=== PATIENT | male | born 1975 | race Caucasian/White ===

== ENCOUNTER 2017-03-25 05:33 | Emergency (ER) | payer OTHER ==
[~2017-03-25] VITALS: Ht 177.8 cm; Wt 95.7 kg
[~2017-03-25 05:33] MED LIST: percocet
--- OUTSIDE RECORDS SUMMARY | 2017-03-25 06:02 | XMS REPORT ---
Author Author GENERATED, SYSTEM Organization Unknown Address Unknown Phone Unavailable Care Team Providers Care Grit Blaster Name Role Phone UNASSIGNED DOCTOR , DOCTOR PP Reason For Visit Chief Complaint RT LITTLE FINGER INJURY Social History Functional Status Vital Signs Results DX Radiology from 09/17/2015 9:02 AMHAND RIGHT 3 VIEWS History: Dislocated right 5th finger Technique: 3view hand Priors: None. Findings: There is no fracture. There is no dislocation. There is persistent flexion deformity of the distal interphalangeal joint of the 5th digit suspicious for extensor mechanism injury. There is a healed fracture of the proximal shaft 5th metacarpal. The distal radius and ulna appear intact. The carpal bones and joint spaces appear well maintained. Impression: Persistent flexion deformity of the distal interphalangeal joint of the 5th digit suspicious for extensor mechanism injury. No definite fractures are identified. Electronically signed by: Caesar Link MD Dictated: 09/17/2015 09:21 Problems Encounter Diagnosis No relevant problems exist. Encounters Encounter Diagnosis No relevant problems exist. Plan of Care Procedures No relevant procedures performed. Immunizations No immunizations administered or ordered. Hospital Course Hospital Discharge Instructions Allergies, Adverse Reactions, Alerts * Latex Allergy has not been assessed. * IV Contrast Allergy has not been assessed. Medication Medication reconciliation has not been performed.
--- OUTSIDE RECORDS SUMMARY | 2017-03-25 06:02 | XMS REPORT | Continuity of Care Document ---
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 Visit Date/Time Discharge Status Pt. Type Provider Facility Loc./Unit Complaint [id number] 09/18/2015 08:00:00 ACT Outpatient [facility]
[2017-03-25] MEDS ORDERED: KETOROLAC 60 MG/2 ML VIAL IM ONE (06:15)
[2017-03-25] MEDS ORDERED: ORPHENADRINE 60 MG/2 ML (NORFLEX) AMP IM ONE (06:15)
--- NOTE | 2017-03-25 06:18 | ED Back Pain ---
General Chief Complaint: Back Problems Stated Complaint: BACK SPASMS Nursing Triage Note: pt verbalized turned to get backpack out of truck, back spasms started with pain radiating to left rib. 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 The patient has had similar pain in his back in the past. The patient had significant disc disease for which she underwent surgery with significant improvement. The patient's surgery was done at [facility]. The patient however continues to have intermittent low back muscle spasm and pain successfully treated in the past with ketorolac and muscle relaxants. The patient's chronic paresthesias to the left lower extremity were moderately improved with surgery. The patient has no associated foot drop or perineal anesthesia. He denies associated bowel or bladder dysfunction. This was not a work-related injury according to the patient. Allergies and Home Medications Allergies Coded Allergies: No Known Drug Allergies (Verified Allergy, Unknown, 06/07/07) Home Medications [percocet] , (Reported) Constitutional: No chills, No fever EENTM: no symptoms reported Respiratory: No cough Cardiovascular: No chest pain Gastrointestinal: No abdominal pain Genitourinary: No dysuria, No frequency Musculoskeletal: see HPI, back pain, muscle stiffness Skin: No rash Psychiatric/Neurological: No Symptoms Reported Past Ayzzaia-Natllb-Axqtwr Hx Patient Social History Recent Foreign Travel: No Contact w/Someone Who Travel: No Recent Infectious Disease Expo: No Recent Hopitalizations: No Seasonal Allergies Seasonal Allergies: No Respiratory Hx Respiratory Disorders: No Neurological Hx Neurological Disorders: No Reproductive System Hx Reproductive Disorders: No Genitourinary Hx Genitourinary Disorders: No Musculoskeletal Hx Musculoskeletal Disorders: Yes (BULGING DISC) Endocrine Hx Endocrine Disorders: No HEENT HX ENT Disorders: No Psychosocial Hx Psychiatric Problems: No Blood Transfusions Hx Blood Disorders: No Reviewed Nursing Assessment Reviewed/Agree w Nursing PMH: Yes Physical Exam Vital Signs Vital Sign - Last 12Hours 03/25/17 05:56 Temp 97.7 Pulse 83 Resp 18 B/P (MAP) 181/11 Pulse Ox 97 O2 Delivery Room Air Capillary Refill : Less Than 3 Seconds General Appearance: No Apparent Distress, WD/WN HEENT: Normal ENT Inspection Neck: Normal Inspection Cardiovascular: Regular Rate, Rhythm Respiratory: Normal Breath Sounds Gastrointestinal: Normal Bowel Sounds Back: Other (the back exam is unremarkable other than approximate 2 and she midline incision over the mid lumbar region from the patient's previous disc surgery.) Extremity: Normal Inspection Neurologic/Psychiatric: Alert, Oriented x3, No Motor/Sensory Deficits Skin: Normal Color, Warm/Dry Progress/Results/Core Measures Results/Orders My Orders Orders - GABINO FISHMAN MD Ketorolac Injection (Toradol Injection) (03/25/17 06:15) Orphenadrine Injection (Norflex Injectio (03/25/17 06:15) Medications Given in ED Current Medications Medications Dose Ordered Sig/Saige Route Start Time Stop Time Status Last Admin Dose Admin Ketorolac Tromethamine 60 mg ONCE ONCE IM 03/25/17 06:15 03/25/17 06:16 03/25/17 06:11 60 MG Orphenadrine Citrate 60 mg ONCE ONCE IM 03/25/17 06:15 03/25/17 06:16 03/25/17 06:11 60 MG Vital Signs/I&O Vital Sign - Last 12Hours 03/25/17 05:56 Temp 97.7 Pulse 83 Resp 18 B/P (MAP) 181/11 Pulse Ox 97 O2 Delivery Room Air Blood Pressure Mean: 67 Progress Note : Time: 06:20 Progress Note Patient received 60 mg of Toradol and Norflex IM. Prescriptions were written for Toradol and Norflex orally. Departure Impression Impression: Primary Impression: Back pain Qualified Codes: M54.5 - Low back pain Disposition: 01 HOME, SELF-CARE Condition: Improved Departure-Patient Inst. Decision time for Depature: 06:22 Referrals: PADMINI VILLANUEVA MD (PCP/Family) Primary Care Physician Patient Instructions: Low Back Pain (DC), MANAGING YOUR CHRONIC PAIN Add. Discharge Instructions: Toradol and Norflex orally as needed. Close follow-up with your doctor. Return if any problems or questions. All discharge instructions reviewed with patient and/or family. Voiced understanding. GABINO FISHMAN MD Mar 25, 2017 06:18
[2017-03-25 06:27] VITALS: BP 181/11
== END 2017-03-25 06:27 | disposition home or self-care (01) ==
LOC: EDUNIT# 05:33 → ER 05:37
DX: M54.5 Low back pain (principal)
CPT/HCPCS: 99284

== ENCOUNTER → 2018-11-01 | Outpatient (REF) ==
--- NOTE | 2018-11-01 15:37 | Diagnostic Imaging Report ---
PROCEDURE: CT head and CT cervical spine without contrast. TECHNIQUE: Multiple contiguous axial images were obtained through the brain and cervical spine without the use of intravenous contrast. Sagittal and coronal reformations through the cervical spine were then performed. INDICATION: Fall. Head injury. COMPARISON: None. FINDINGS: CT HEAD: No intracranial hemorrhage, mass effect, hydrocephalus or extra-axial fluid collections. No CT evidence for territorial infarction. Osseous structures are intact. Mild mucosal thickening in the floor of the right maxillary sinus. The mastoids are clear. CT CERVICAL SPINE: Normal alignment. Vertebral body heights are preserved. No fractures. Moderate diffuse degenerative endplate changes. No high-grade spinal canal narrowing is evident on this non-intrathecal contrast exam. The visualized paravertebral soft tissues are unremarkable. IMPRESSION: No acute intracranial or cervical spine CT findings. Dictated by: Dictated on workstation # [id number]
== END | disposition home or self-care (01) ==
LOC: OCC 15:03
PROVIDERS: ATTEND Nurse Practitioner Family
CPT/HCPCS: 70450; 72125

== ENCOUNTER 2019-05-11 02:09 | Emergency (ER) | payer OTHER ==
[~2019-05-11] VITALS: Ht 180.3 cm; Wt 97.5 kg
[2019-05-11] MEDS ORDERED: LIDOCAINE 1% INJ 20 ML 20 ML VIAL ONE (02:18)
[2019-05-11] MEDS ORDERED: LIDOCAINE 1% INJ 20 ML 20 ML VIAL INJ ONE (02:30)
--- NOTE | 2019-05-11 02:35 | NUR ---
SUTURES TO RIGHT KNEE PER DR. ANAYA USING 4-0 PROLENE.
[2019-05-11] MEDS ORDERED: TRIM/SULFAMETH 160/800 (SEPTRA DS) TAB PO ONE (02:45)
--- NOTE | 2019-05-11 03:01 | ED General ---
General Chief Complaint: Laceration Stated Complaint: RT KNEE LAC Nursing Triage Note: AMBULATORY TO ED ROOM 3 WITH LAC TO RIGHT KNEE. PT IS NEW [employer] WHO LANDED KNEE ON [address] DURING "ALTERCATION" WITH SUBJECT AT SCENE HE WAS WORKING. STATES TETANUS WITHIN LAST 4 YEARS. 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 He was apprehended a suspect when he landed on his knees on some broken glass and debris. The glass or debris cut through his pants and lacerated his right knee. He denies any significant pain or difficulty walking. The laceration is fairly deep. There is some mild bleeding. He reports having had a tetanus immunization within the past 4 years. Allergies and Home Medications Allergies Coded Allergies: No Known Drug Allergies (Verified , 06/07/07) Home Medications Sulfamethoxazole/Trimethoprim 1 Each Tablet, 1 EACH PO BID Prescribed by: BLANCHE DELEON on 05/11/19 0302 Patient Home Medication List Home Medication List Reviewed: Yes Review of Systems Review of Systems Constitutional: no symptoms reported EENTM: no symptoms reported Respiratory: no symptoms reported Cardiovascular: no symptoms reported Gastrointestinal: no symptoms reported Genitourinary: no symptoms reported Musculoskeletal: no symptoms reported Skin: see HPI Psychiatric/Neurological: No Symptoms Reported Hematologic/Lymphatic: No Symptoms Reported Immunological/Allergic: no symptoms reported Past Fdajero-Jwmtor-Mfyjwz Hx Past Med/Social Hx: Reviewed Nursing Past Med/Soc Hx Patient Social History Alcohol Use: Occasionally Uses Recreational Drug Use: No Smoking Status: Never a Smoker Recent Foreign Travel: No Contact w/Someone Who Travel: No Recent Infectious Disease Expo: No Recent Hopitalizations: No Physical Abuse: No Sexual Abuse: No Mistreated: No Fear: No Immunizations Up To Date Tetanus Booster (TDap): Less than 5yrs Seasonal Allergies Seasonal Allergies: No Past Medical History Surgeries: Yes (LUMBAR LAMINECTOMY 2006) Orthopedic Respiratory: No Cardiac: No Neurological: No Reproductive Disorders: No Genitourinary: No Gastrointestinal: No Musculoskeletal: Yes (BULGING DISC) Endocrine: No HEENT: No Cancer: No Psychosocial: No Integumentary: No Blood Disorders: No Physical Exam Vital Signs Vital Signs - First Documented 05/11/19 05/11/19 02:18 03:15 Temp 98.6 Pulse 83 Resp 18 B/P (MAP) 142/105 (117) Pulse Ox 100 Capillary Refill : Less Than 3 Seconds Height, Weight, BMI Height: 5'11.00" Weight: 215lbs. oz. 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 Skin was then cleaned with alcohol. Lidocaine was then injected for local anesthetic. The skin and wound opening was scrubbed with saline and chlorhexidine. Wound was then irrigated with normal saline and chlorhexidine followed by plain normal saline. Wound was explored with hemostats and forceps. Numerous thread fragments were removed from the wound during irrigation. Betadine prep was then applied. 2 sutures of 4-0 Prolene were applied to loosely approximate the wound. Wound was then dressed by nursing staff. Progress/Results/Core Measures Suspected Sepsis Recent Fever Within 48 Hours: No Infection Criteria Present: None New/Unexplained Altered Menta: No Sepsis Screen: No Definite Risk SIRS Temperature:98.6 Pulse: 83 Respiratory Rate: 18 Blood Pressure 142 /105 Mean: 117 Results/Orders My Orders Orders - BLANCHE GUO MD Lidocaine 1% Inj 20 Ml (Xylocaine 1% Inj (05/11/19 02:30) Lidocaine 1% Inj 20 Ml (Xylocaine 1% Inj (05/11/19 02:18) Sulfamethoxazole/Trimet Ds Tab (Bactrim (05/11/19 02:45) Medications Given in ED Current Medications Medications Dose Ordered Sig/Saige Route Start Time Stop Time Status Last Admin Dose Admin Lidocaine HCl 20 ml ONCE ONCE INJ 05/11/19 02:30 05/11/19 02:31 DC 05/11/19 02:51 2 ML Trimethoprim/ Sulfamethoxazole 1 ea ONCE ONCE PO 05/11/19 02:45 05/11/19 02:46 DC 05/11/19 02:50 1 EA Vital Signs/I&O 05/11/19 05/11/19 02:18 03:15 Temp 98.6 98.6 Pulse 83 80 Resp 18 18 B/P (MAP) 142/105 (117) 138/99 (112) Pulse Ox 100 Capillary Refill : Less Than 3 Seconds Blood Pressure Mean: 117 Progress Note : Progress Note Wound was explored, debrided, and irrigated prior to closure. Patient was treated with Bactrim DS for infection prophylaxis due to the deep nature of the wound. Patient was up-to-date on his tetanus immunization. Departure Impression Primary Impression: Laceration of knee Qualified Codes: S81.011A - Laceration without foreign body, right knee, initial encounter Disposition: HOME, SELF-CARE Condition: Improved Departure-Patient Inst. Decision time for Depature: 02:46 Referrals: JULIO CÉSAR COLLINS MD (PCP/Family) Primary Care Physician Patient Instructions: Laceration Repair With Stitches (DC) Add. Discharge Instructions: Keep your wound clean and dry except for normal showering. Cover when active or in dirty/sweaty environments. Monitor for signs of infection such as increasing pain, increasing swelling, increasing redness, fever, pain in the joint, or puslike drainage. Return to care promptly if you notice these symptoms. You may shower and allow soapy water to run over the wound but avoid scrubbing directly over the sutures. You may take Tylenol (acetaminophen) up to 1000 mg every 6 hours as needed and/or ibuprofen up to 600 mg every 6 hours as needed for pain. Complete your antibiotic as prescribed. Return to all Health in 8-10 days to have the sutures removed. All discharge instructions reviewed with patient and/or family. Voiced understanding. Scripts Sulfamethoxazole/Trimethoprim (Bactrim Ds Tablet) 1 Each Tablet 1 EACH PO BID, #14 TAB Prov: BLANCHE GUO MD 05/11/19 BLANCHE GUO MD May 11, 2019 03:01
[2019-05-11] MEDS ORDERED: SULF1TAB35 PO (03:02)
[2019-05-11 03:15] VITALS: BP 138/99
== END 2019-05-11 03:16 | disposition home or self-care (01) ==
LOC: EDUNIT# 02:09 → ER 02:11
DX: S81.011A Laceration without foreign body, right knee, initial encounter (principal); Z98.1 Arthrodesis status; W25.XXXA Contact with sharp glass, initial encounter

== ENCOUNTER 2020-07-10 15:34 | Inpatient (IN) | payer OTHER ==
[~2020-07-10] VITALS: Ht 180.3 cm; Wt 98.0 kg
[~2020-07-10 15:34] MED LIST changes: +SULF1TAB35 PO
[2020-07-10] MEDS ORDERED: LIDOCAINE 1% INJ 20 ML 20 ML VIAL INJ ONE (16:15)
--- NOTE | 2020-07-10 16:26 | ED Upper Extremity ---
General Chief Complaint: Upper Extremity Stated Complaint: CELLULITIS Nursing Triage Note: Pt to ED with concern of cellulitis to L elbow. Pt reports waking up on Tuesday with a sore and swollen elbow. Nursing Sepsis Screen: No Definite Risk Source: patient Exam Limitations: no limitations History of Present Illness Date Seen by Provider: Jul 10, 2020 Time Seen by Provider: 16:24 Initial Comments To ER with concern of cellulitis to the left dorsal elbow. He was sent over from [email or web address]. 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 He noticed some swelling that he awakened with 2 days ago. Temperature at [facility] 100.2. Onset: just prior to arrival Severity: moderate Pain/Injury Location: left elbow Method of Injury: unknown Modifying Factors: Worse With Movement Allergies and Home Medications Allergies Coded Allergies: No Known Drug Allergies (Verified , 06/07/07) Home Medications Sulfamethoxazole/Trimethoprim 1 Each Tablet, 1 EACH PO BID Prescribed by: BLANCHE DELEON on 05/11/19 0302 Patient Home Medication List Home Medication List Reviewed: Yes Review of Systems Constitutional: see HPI; No chills EENTM: see HPI Respiratory: no symptoms reported Cardiovascular: no symptoms reported Skin: see HPI Past Opevwye-Tsfrcn-Hyonwg Hx Patient Social History Alcohol Use: Occasionally Uses Recreational Drug Use: No 2nd Hand Smoke Exposure: No Recent Foreign Travel: No Contact w/Someone Who Travel: No Recent Infectious Disease Expo: No Recent Hopitalizations: No Immunizations Up To Date Tetanus Booster (TDap): Less than 5yrs Seasonal Allergies Seasonal Allergies: No Past Medical History Surgeries: Yes (LUMBAR LAMINECTOMY 2006) Orthopedic Respiratory: No Cardiac: No Neurological: No Reproductive Disorders: No Genitourinary: No Gastrointestinal: No Musculoskeletal: Yes (BULGING DISC) Endocrine: No HEENT: No Cancer: No Psychosocial: No Integumentary: No Blood Disorders: No Physical Exam Vital Signs Vital Signs - First Documented 07/10/20 15:55 Temp 36.7 Pulse 105 Resp 20 B/P (MAP) 166/104 (124) Pulse Ox 97 O2 Delivery Room Air Capillary Refill : Less Than 3 Seconds Height, Weight, BMI Height: 5'11.00" Weight: 215lbs. oz. 97.759177cu; 29.00 BMI Method:Stated General Appearance: WD/WN, no apparent distress Respiratory: no respiratory distress, no accessory muscle use Shoulder: normal inspection, non-tender Elbow/Forearm: Left (to the dorsal aspect of the left arm over the olecranon bursa is a bit of fluctuance but also some heat and erythema. No open or draining wounds. Bedside ultrasound revealed some fluid within the leg and on bursa. This was anesthetized with 1 mL of 1% lidocaine without epinephrine. A larger 18-gauge needle was then inserted through the same tract and 8 mL of straw-colored relatively clear fluid was aspirated. This was sent to lab for culture, cell count, Gram stain and crystal analysis.) Neurologic/Psychiatric: alert, normal mood/affect, oriented x 3 Skin: normal color, warm/dry Procedures/Interventions Suture Size: 4-0 Progress/Results/Core Measures Results/Orders Lab Results Laboratory Tests Test 07/10/20 16:00 07/10/20 16:19 07/10/20 16:45 Range/Units White Blood Count 17.3 H 4.3-11.0 10^3/uL Red Blood Count 5.72 H 4.30-5.52 10^6/uL Hemoglobin 15.7 13.3-17.7 g/dL Hematocrit 49 40-54 % Mean Corpuscular Volume 85 80-99 fL Mean Corpuscular Hemoglobin 27 25-34 pg Mean Corpuscular Hemoglobin Concent 32 32-36 g/dL Red Cell Distribution Width 13.6 10.0-14.5 % Platelet Count 265 130-400 10^3/uL Mean Platelet Volume 10.3 9.0-12.2 fL Immature Granulocyte % (Auto) 0 % Neutrophils (%) (Auto) 73 42-75 % Lymphocytes (%) (Auto) 18 12-44 % Monocytes (%) (Auto) 9 0-12 % Eosinophils (%) (Auto) 1 0-10 % Basophils (%) (Auto) 0 0-10 % Neutrophils # (Auto) 12.5 H 1.8-7.8 10^3/uL Lymphocytes # (Auto) 3.0 1.0-4.0 10^3/uL Monocytes # (Auto) 1.5 H 0.0-1.0 10^3/uL Eosinophils # (Auto) 0.1 0.0-0.3 10^3/uL Basophils # (Auto) 0.1 0.0-0.1 10^3/uL Immature Granulocyte # (Auto) 0.1 0.0-0.1 10^3/uL Neutrophils % (Manual) 74 % Lymphocytes % (Manual) 20 % Monocytes % (Manual) 6 % Eosinophils % (Manual) 0 % Basophils % (Manual) 0 % Band Neutrophils 0 % Blood Morphology Comment NORMAL Sodium Level 140 135-145 MMOL/L Potassium Level 4.0 3.6-5.0 MMOL/L Chloride Level 105 98-107 MMOL/L Carbon Dioxide Level 23 21-32 MMOL/L Anion Gap 12 5-14 MMOL/L Blood Urea Nitrogen 13 7-18 MG/DL Creatinine 1.19 0.60-1.30 MG/DL Estimat Glomerular Filtration Rate > 60 BUN/Creatinine Ratio 11 Glucose Level 99 70-105 MG/DL Calcium Level 9.5 8.5-10.1 MG/DL Corrected Calcium 9.2 8.5-10.1 MG/DL Total Bilirubin 0.7 0.1-1.0 MG/DL Aspartate Amino Transf (AST/SGOT) 20 5-34 U/L Alanine Aminotransferase (ALT/SGPT) 31 0-55 U/L Alkaline Phosphatase 59 40-136 U/L Total Protein 7.5 6.4-8.2 GM/DL Albumin 4.4 3.2-4.5 GM/DL Body Fluid Source SYNOVIAL Body Fluid Color YELLOW Body Fluid Appearance MOD CLDY Body Fluid WBC 3350 /uL Body Fluid RBC 5075 /uL Body Fluid Crystals URIC ACID Lactic Acid Level 1.43 0.50-2.00 MMOL/L My Orders Orders - EDITH ASHLEY APRN Cbc With Automated Diff (07/10/20 16:03) Comprehensive Metabolic Panel (07/10/20 16:03) Blood Culture (07/10/20 16:03) Lactic Acid Analyzer (07/10/20 16:03) Ed Iv/Invasive Line Start (07/10/20 16:03) Lidocaine 1% Inj 20 Ml (Xylocaine 1% Inj (07/10/20 16:15) Body Fluid Culture (07/10/20 16:22) Body Fluid Cell Count (07/10/20 16:22) Crystals,Body Fluid (07/10/20 16:22) Ceftriaxone For Iv Use (Rocephin For I (07/10/20 16:30) Doxycycline Injection (Vibramycin Inject (07/10/20 16:30) Manual Differential (07/10/20 16:00) Vancomycin Injection (Vancomycin Injecti (07/10/20 17:15) Elbow, Left, 3 Views (07/10/20 17:17) Medications Given in ED Current Medications Medications Dose Ordered Sig/Saige Route Start Time Stop Time Status Last Admin Dose Admin Ceftriaxone Sodium 1000 mg/ Sterile Water 10 ml @ 200 mls/hr ONCE ONCE IV 07/10/20 16:30 07/10/20 16:32 DC 07/10/20 18:02 200 MLS/HR Lidocaine HCl 2 ml ONCE ONCE INJ 07/10/20 16:15 07/10/20 16:16 DC 07/10/20 16:20 2 ML Vital Signs/I&O 07/10/20 15:55 Temp 36.7 Pulse 105 Resp 20 B/P (MAP) 166/104 (124) Pulse Ox 97 O2 Delivery Room Air Blood Pressure Mean: 124 Diagnostic Imaging Diagonstic Imaging: Xray Comments NAME: MALCOLM ZEPEDA Kandice [facility] REC#: [id number] PT STATUS: ADM IN : 1975 PHYSICIAN: EDITH ASHLEY APRN ADMIT DATE: 07/10/20 Draft Date of Exam:07/10/20 ELBOW, LEFT, 3 VIEWS EXAMINATION: Left elbow radiographs, 3 views. COMPARISON: None. HISTORY: 45-year-old male, left elbow pain. Cellulitis. FINDINGS: There is reticulation of the subcutaneous fat medially. There is no identified radiopaque foreign body. There is no cortical or aggressive bone destruction. There is no identified acute fracture. There is no joint space loss. There is no elbow joint effusion. There is soft tissue swelling posteriorly as well. IMPRESSION: 1. Nonspecific soft tissue swelling and subcutaneous edema which could potentially correlate with history of cellulitis. 2. No radiographic evidence of osteomyelitis. 3. No elbow joint effusion. Dictated on workstation # [id number] Dict: 07/10/201805 Trans: 07/10/201810 [facility] [id number] Interpreted by: HALEY GARCIA MD Electronically signed by: Departure Communication (Admissions) 1720-given the leukocytosis tachycardia and source of infection he technically meets sepsis criteria. I did recommend admission, he agrees but is not real enthusiastic about this understandably. We will consult Dr. Cox, admit to Dr. Cadena, using Ancef and vancomycin. Impression Primary Impression: Septic olecranon bursitis of left elbow Disposition: ADMITTED INPATIENT Condition: Stable Admissions Decision to Admit Reason: Admit from ER (General) Decision to Admit/Date: Jul 10, 2020 Time/Decision to Admit Time: 16:56 Departure-Patient Inst. Referrals: JULIO CÉSAR COLLINS MD (PCP/Family) Primary Care Physician EDITH ASHLEY APRN Jul 10, 2020 16:26
[2020-07-10] MEDS ORDERED: DOXYCYCLINE INJECTION 100 MG in NS (IVPB) 100 ML IV ONE (16:30)
[2020-07-10] MEDS ORDERED: cefTRIAXone FOR IV USE 1,000 MG in WATER (STERILE) FOR INJECTION 10 ML IV ONE (16:30)
[2020-07-10 16:31] LABS: BASOPHILS # (AUTO) 0.1 10^3/uL (0.0-0.1); BASOPHILS % (AUTO) 0 % (0-10); EOSINOPHILS # (AUTO) 0.1 10^3/uL (0.0-0.3); EOSINOPHILS % (AUTO) 1 % (0-10); HEMATOCRIT 49 % (40-54); HEMOGLOBIN 15.7 g/dL (13.3-17.7); LYMPHOCYTES % (AUTO) 18 % (12-44); MEAN CORPUSCULAR HEMOGLOBIN 27 pg (25-34); MEAN CORPUSCULAR HGB CONC 32 g/dL (32-36); MEAN CORPUSCULAR VOLUME 85 fL (80-99); MEAN PLATELET VOLUME 10.3 fL (9.0-12.2); MONOCYTES # (AUTO) 1.5 10^3/uL (0.0-1.0); MONOCYTES % (AUTO) 9 % (0-12); NEUTROPHILS # (AUTO) 12.5 10^3/uL (1.8-7.8); NEUTROPHILS % (AUTO) 73 % (42-75); PLATELET COUNT 265 10^3/uL (130-400); WHITE BLOOD COUNT 17.3 10^3/uL (4.3-11.0)
[2020-07-10 16:35] LABS: ALBUMIN 4.4 GM/DL (3.2-4.5); CHLORIDE 105 MMOL/L (98-107); SODIUM 140 MMOL/L (135-145)
[2020-07-10 16:36] LABS: CALCIUM 9.5 MG/DL (8.5-10.1)
[2020-07-10 16:37] LABS: GLUCOSE 99 MG/DL (70-105); TOTAL PROTEIN 7.5 GM/DL (6.4-8.2)
[2020-07-10 16:38] LABS: CARBON DIOXIDE 23 MMOL/L (21-32)
[2020-07-10 16:39] LABS: BILIRUBIN,TOTAL 0.7 MG/DL (0.1-1.0)
[2020-07-10 16:41] LABS: ALKALINE PHOSPHATASE 59 U/L (40-136); CREATININE SERUM 1.19 MG/DL (0.60-1.30); GFR ESTIMATED > 60
[2020-07-10 16:42] LABS: BUN/CREATININE RATIO 11
[2020-07-10 16:44] LABS: ALANINE AMINOTRANSFERASE 31 U/L (0-55)
[2020-07-10 17:03] LABS: BAND NEUTROPHILS 0 %; LYMPHOCYTES % (MANUAL) 20 %; MONOCYTES % (MANUAL) 6 %; NEUTROPHILS % (MANUAL) 74 %
[2020-07-10 17:04] LABS: BASOPHILS % (MANUAL) 0 %; EOSINOPHILS % (MANUAL) 0 %; RBC MORPH NORMAL
[2020-07-10] MEDS ORDERED: VANCOMYCIN INJECTION 1,500 MG in NS IV 500 ML 500 ML IV SCH (17:15)
[2020-07-10 17:49] LABS: BODY FLUID APPEARENCE MOD CLDY; BODY FLUID COLOR YELLOW; BODY FLUID RBC COUNT 5075 /uL; BODY FLUID SOURCE SYNOVIAL; BODY FLUID WBC TOTAL COUNT 3350 /uL
[2020-07-10] MEDS ORDERED: IBUPROFEN 600 MG (MOTRIN) TAB PO SCH (18:00)
--- NOTE | 2020-07-10 18:11 | Diagnostic Imaging Report ---
EXAMINATION: Left elbow radiographs, 3 views. COMPARISON: None. HISTORY: 45-year-old male, left elbow pain. Cellulitis. FINDINGS: There is reticulation of the subcutaneous fat medially. There is no identified radiopaque foreign body. There is no cortical or aggressive bone destruction. There is no identified acute fracture. There is no joint space loss. There is no elbow joint effusion. There is soft tissue swelling posteriorly as well. IMPRESSION: 1. Nonspecific soft tissue swelling and subcutaneous edema which could potentially correlate with history of cellulitis. 2. No radiographic evidence of osteomyelitis. 3. No elbow joint effusion. Dictated by: Dictated on workstation # [id number]
[2020-07-10 18:21] VITALS: BP 144/109
[2020-07-10 18:22] LABS: BF OTHER CELLS 0 %; LYMPHOCYTES,BODY FLUID 14 %
[2020-07-10] MEDS ORDERED: ACETAMINOPHEN 325 MG TABLET PO PRN (18:30)
[2020-07-10] MEDS: LACTATED RINGERS 1,000 ML IV SCH (18:41)
--- NOTE | 2020-07-10 18:56 | NUR ---
CR 1.19; CR CL > 60; WT 97.5 KG; VANCO 2000 MG IV BOLUS THEN 1500 MG IV Q12H; TROUGH AFTER 3RD DOSE Addendum: 07/12/20 at 0903 by TANNA ALVES [facility] Will repeat trough 07/13 @ 0700. No changes at this time.
[2020-07-10] MEDS ORDERED: diphenhydrAMINE 25 MG TAB (BENADRYL) PO PRN (19:00)
[2020-07-10] MEDS ORDERED: BISACODYL 10 MG SUPP (DULCOLAX) PR PRN (19:00)
[2020-07-10] MEDS ORDERED: ONDANSETRON 4 MG (ZOFRAN) ORAL DISSOLVE TAB PO PRN (19:00)
[2020-07-10] MEDS ORDERED: MELATONIN 3 MG TABLET PO PRN (19:00)
[2020-07-10] MEDS ORDERED: ONDANSETRON 4 MG/2 ML (SDV) Z0FRAN IV PRN (19:00)
[2020-07-10] MEDS ORDERED: ANTACID SUSP 30 ML UDC (MYLANTA) PO PRN (19:00)
[2020-07-10] MEDS ORDERED: ceFAZolin 2 GM/50 ML (PRE-MIXED) IV SCH (19:00)
[2020-07-10] MEDS ORDERED: CATHETER FLUSH 10 ML SYR IV PRN (19:00)
[2020-07-10] MEDS ORDERED: polyethylene glycoL POWDER 17 GM (MIRALAX) PACK PO PRN (19:00)
[2020-07-10] MEDS ORDERED: PANTOPRAZOLE 40 MG (PROTONIX) TAB PO NR (19:00)
[2020-07-10] MEDS ORDERED: amLODIPine 5 MG (NORVASC) TAB PO NR (19:00)
[2020-07-10] MEDS ORDERED: hydrALAZINE (APRESOLINE) 25 MG TAB PO PRN (19:00)
[2020-07-10] MEDS ORDERED: NAPROXEN 250 MG (NAPROSYN) TABLET PO SCH (19:30)
--- NOTE | 2020-07-10 19:30 | NUR ---
MALCOLM ZEPEDA JR admitted to room 415-1, with an admitting diagnosis of left elbow swelling , on 07/10/20 from ED via wheel chair , accompanied by staff .MALCOLM ZEPEDA JR introduced to surroundings, call light, bed controls, phone, TV, temperature control, lights, meal times, smoking policy, visitor policy, side rail policy, bathrooms and showers. Patient Rights given to patient in the handbook. MALCOLM ZEPEDA JR verbalizes understanding that [facility] is not responsible for the loss or damage to any personal effects or valuables that are kept in the patients posession during their hospitalization. The following Patient Care Plans and discharge were discussed with the patient. MALCOLM ZEPEDA JR verbalizes understanding of Interdisciplinary Patient Education. Patient was informed about the Rapid Response Team and its purpose.
[2020-07-10] MEDS: DOCUSATE SODIUM 100 MG (COLACE) CAP PO SCH (19:49)
[2020-07-10] MEDS: SENNOSIDES 8.6 MG (SENOKOT) TAB PO SCH (19:49)
[2020-07-10 20:00] VITALS: BP 141/89
[2020-07-10] MEDS: ENOXAPARIN 40 MG/0.4 ML (LOVENOX) SYR SC SCH (20:03)
[2020-07-10] MEDS ORDERED: VANCOMYCIN 500 MG/NS 100 ML IV NR ×2 (21:00)
--- NOTE | 2020-07-10 23:24 | CONSULTATION REPORT ---
DATE OF SERVICE: 07/10/2020 INPATIENT CONSULTATION REASON FOR CONSULTATION: Left olecranon bursitis. 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 He denies any specific trauma, but had been doing some technical training prior to this. He then noticed that this progressed to the point where there was some fluctuance and presented to Occupational [facility]. Today, it was recommended by them that he go to the Emergency Department. At that point, his olecranon bursa was aspirated and by report had approximately 7 mL of straw colored fluid obtained. This was sent for examination. Of note, so far there are uric acid crystals noted, but the patient did have an elevated white blood cell count on his CBC. The patient reports no antecedent pain or problems. He denies any systemic illnesses. He reports that he currently does not feel unwell. He reports he was not febrile at home. He was admitted for IV antibiotics. His cultures and Gram stain are pending from the aspirate. PHYSICAL EXAMINATION: EXTREMITIES: There is erythema noted about posterior elbow. There is some minimal fluctuance noted. There is no effusion noted. The elbow has full elbow flexion, extension, full pronation and supination of the forearm. CLINICAL IMPRESSION: Left septic olecranon bursitis. PLAN: Agree with broad spectrum antibiotics with Ancef and vancomycin, awaiting the culture results. This will generally resolved with IV antibiotics without the need for operative intervention, but I will follow the patient to ensure he does respond to the antibiotics. There were uric acid crystals noted in his aspirates. The patient has no history of gout, but I would recommend checking his uric acid levels. Thank you for the consultation. Job ID: [id number] DocumentID: [id number] Dictated Date: 07/10/2020 18:52:45 Director Of Corporate Marketing Date: 07/10/2020 23:23:50 Dictated By: SHUN ROBBINS MD
[2020-07-11] VITALS (7 sets, daily range): BP systolic 130–146; BP diastolic 65–89
[2020-07-11] MEDS: LACTATED RINGERS 1,000 ML IV SCH ×2 (03:49→08:53)
[2020-07-11 06:04] LABS: BASOPHILS # (AUTO) 0.1 10^3/uL (0.0-0.1); BASOPHILS % (AUTO) 0 % (0-10); EOSINOPHILS # (AUTO) 0.2 10^3/uL (0.0-0.3); EOSINOPHILS % (AUTO) 1 % (0-10); HEMATOCRIT 45 % (40-54); HEMOGLOBIN 14.6 g/dL (13.3-17.7); LYMPHOCYTES # (AUTO) 3.4 10^3/uL (1.0-4.0); LYMPHOCYTES % (AUTO) 20 % (12-44); MEAN CORPUSCULAR HEMOGLOBIN 28 pg (25-34); MEAN CORPUSCULAR HGB CONC 33 g/dL (32-36); MEAN CORPUSCULAR VOLUME 84 fL (80-99); MEAN PLATELET VOLUME 10.5 fL (9.0-12.2); MONOCYTES # (AUTO) 1.5 10^3/uL (0.0-1.0); MONOCYTES % (AUTO) 9 % (0-12); NEUTROPHILS # (AUTO) 12.1 10^3/uL (1.8-7.8); NEUTROPHILS % (AUTO) 70 % (42-75); PLATELET COUNT 240 10^3/uL (130-400); WHITE BLOOD COUNT 17.3 10^3/uL (4.3-11.0)
[2020-07-11 06:15] LABS: ALBUMIN 3.9 GM/DL (3.2-4.5); CHLORIDE 105 MMOL/L (98-107); SODIUM 135 MMOL/L (135-145)
[2020-07-11 06:16] LABS: CALCIUM 8.5 MG/DL (8.5-10.1)
[2020-07-11 06:17] LABS: GLUCOSE 98 MG/DL (70-105)
[2020-07-11 06:18] LABS: TOTAL PROTEIN 6.6 GM/DL (6.4-8.2)
[2020-07-11 06:19] LABS: BILIRUBIN,TOTAL 0.6 MG/DL (0.1-1.0); CARBON DIOXIDE 19 MMOL/L (21-32)
[2020-07-11 06:21] LABS: ALKALINE PHOSPHATASE 51 U/L (40-136); CREATININE SERUM 1.08 MG/DL (0.60-1.30); GFR ESTIMATED > 60
[2020-07-11 06:22] LABS: BUN/CREATININE RATIO 10
[2020-07-11 06:24] LABS: ALANINE AMINOTRANSFERASE 25 U/L (0-55)
[2020-07-11] MEDS ORDERED: predniSONE 20 MG TAB PO ONE (07:45)
[2020-07-11] MEDS: ceFAZolin 2 GM IV Premixed 50 ML IV SCH ×2 (08:40→15:53)
[2020-07-11] MEDS: amLODIPine 5 MG (NORVASC) TAB PO SCH (08:44)
[2020-07-11] MEDS: DOCUSATE SODIUM 100 MG (COLACE) CAP PO SCH ×2 (08:44→20:09)
[2020-07-11] MEDS: PANTOPRAZOLE 40 MG (PROTONIX) TAB PO SCH (08:44)
[2020-07-11] MEDS: ACETAMINOPHEN 325 MG TABLET PO PRN (08:45)
[2020-07-11] MEDS ORDERED: VANCOMYCIN 1500 MG/NS 500 ML IVPB IV SCH ×2 (09:00)
[2020-07-11] MEDS: VANCOMYCIN INJECTION 1,500 MG in NS IV 500 ML 500 ML IV SCH ×2 (09:29→20:08)
[2020-07-11] MEDS: SENNOSIDES 8.6 MG (SENOKOT) TAB PO SCH ×2 (09:32→20:09)
--- NOTE | 2020-07-11 11:09 | Progress Note ---
Standard Progress Note Progress Notes/Assess & Plan Date Seen by a Provider: Jul 11, 2020 Time Seen by a Provider: 11:06 Progress/Assessment & Plan feeling better Vital Signs Date Time Temp Pulse Resp B/P (MAP) Pulse Ox O2 Delivery O2 Flow Rate FiO2 07/11/20 09:00 Room Air 07/11/20 08:00 37.2 83 18 142/77 (98) 95 Room Air 07/11/20 03:56 36.4 77 18 133/76 (95) 96 Room Air 07/11/20 00:00 36.1 78 18 141/89 (106) 96 Room Air 07/10/20 20:00 36.1 78 18 141/89 (106) 96 Room Air 07/10/20 20:00 Room Air 07/10/20 19:25 Room Air 07/10/20 18:21 36.7 76 20 144/109 98 Room Air 07/10/20 18:14 36.7 76 20 144/109 (124) 98 Room Air 07/10/20 15:55 36.7 105 20 166/104 (124) 97 Room Air I & O 07/11/20 07:00 Intake Total 1475 ml Balance 1475 ml Laboratory Tests Test 07/10/20 16:00 07/10/20 16:19 07/10/20 16:45 07/11/20 05:40 Range/Units White Blood Count 17.3 H 17.3 H 4.3-11.0 10^3/uL Red Blood Count 5.72 H 5.31 4.30-5.52 10^6/uL Hemoglobin 15.7 14.6 13.3-17.7 g/dL Hematocrit 49 45 40-54 % Mean Corpuscular Volume 85 84 80-99 fL Mean Corpuscular Hemoglobin 27 28 25-34 pg Mean Corpuscular Hemoglobin Concent 32 33 32-36 g/dL Red Cell Distribution Width 13.6 13.6 10.0-14.5 % Platelet Count 265 240 130-400 10^3/uL Mean Platelet Volume 10.3 10.5 9.0-12.2 fL Immature Granulocyte % (Auto) 0 1 % Neutrophils (%) (Auto) 73 70 42-75 % Lymphocytes (%) (Auto) 18 20 12-44 % Monocytes (%) (Auto) 9 9 0-12 % Eosinophils (%) (Auto) 1 1 0-10 % Basophils (%) (Auto) 0 0 0-10 % Neutrophils # (Auto) 12.5 H 12.1 H 1.8-7.8 10^3/uL Lymphocytes # (Auto) 3.0 3.4 1.0-4.0 10^3/uL Monocytes # (Auto) 1.5 H 1.5 H 0.0-1.0 10^3/uL Eosinophils # (Auto) 0.1 0.2 0.0-0.3 10^3/uL Basophils # (Auto) 0.1 0.1 0.0-0.1 10^3/uL Immature Granulocyte # (Auto) 0.1 0.1 0.0-0.1 10^3/uL Neutrophils % (Manual) 74 % Lymphocytes % (Manual) 20 % Monocytes % (Manual) 6 % Eosinophils % (Manual) 0 % Basophils % (Manual) 0 % Band Neutrophils 0 % Blood Morphology Comment NORMAL Sodium Level 140 135 135-145 MMOL/L Potassium Level 4.0 4.0 3.6-5.0 MMOL/L Chloride Level 105 105 98-107 MMOL/L Carbon Dioxide Level 23 19 L 21-32 MMOL/L Anion Gap 12 11 5-14 MMOL/L Blood Urea Nitrogen 13 11 7-18 MG/DL Creatinine 1.19 1.08 0.60-1.30 MG/DL Estimat Glomerular Filtration Rate > 60 > 60 BUN/Creatinine Ratio 11 10 Glucose Level 99 98 70-105 MG/DL Calcium Level 9.5 8.5 8.5-10.1 MG/DL Corrected Calcium 9.2 8.6 8.5-10.1 MG/DL Total Bilirubin 0.7 0.6 0.1-1.0 MG/DL Aspartate Amino Transf (AST/SGOT) 20 16 5-34 U/L Alanine Aminotransferase (ALT/SGPT) 31 25 0-55 U/L Alkaline Phosphatase 59 51 40-136 U/L Total Protein 7.5 6.6 6.4-8.2 GM/DL Albumin 4.4 3.9 3.2-4.5 GM/DL Body Fluid Source SYNOVIAL Body Fluid Color YELLOW Body Fluid Appearance MOD CLDY Body Fluid WBC 3350 /uL Body Fluid RBC 5075 /uL Body Fluid Polynuclear WBCs 84 % Body Fluid Mononuclear WBCs 2 % Body Fluid Lymphocytes 14 % Body Fluid Other Cells 0 % Body Fluid Crystals URIC ACID Lactic Acid Level 1.43 0.50-2.00 MMOL/L cultures pending Gram stain--WBC no bacteria L elbow erythema improved. mild fluctuance at bursa ROM full Impression- olecranon bursitis--septic vs gout await cultures no need for operative intervention currently Focused Exam Lactate Level 07/10/20 16:45: Lactic Acid Level 1.43 SHUN ROBBINS MD Jul 11, 2020 11:09
--- NOTE | 2020-07-11 13:09 | NUR ---
"RD ASSESSMENT PMHx: no PMH PT INTERACTION: Pt was awake and pleasant during nutrition assessment. Pt states current appetite is good. Note avg PO intake 100% x2meal, per chart review. Pt states folowing a regular diet at home, and has no issues with chewing/swallowing food. Pt states no recent issues with nausea, vomiting, constipation, or diarrhea, and that his last BM was 07/10. Note pt currently on bowel regimen of colace BID, and senna BID, per chart review. Pt states no recent wt changes. Note unable to determine recent wt hx, per chart review. Note presence of wound (L elbow), per chart review. ABNORMAL NUTRITION-RELATED LAB VALUES Labs WNL at this time Est. kcal needs: 1950 kcal | 20 kcal/kg Est. Pro needs: 118 g Pro | 1.2 g Pro/kg PES STATEMENT: Inadequate protein intake ([id number]) related to increased protein needs as evidenced by presence of wound (L elbow) INTERVENTION: Continue with current diet order of Regular diet. Add Ensure HP (vary) to meals TID. Provides 160 kcal and 16 g Pro per serving, for perceived benefit to wound healing. Will continue to follow and reassess as pt needs, intake, and status change. Hilary Benton, MS RD LD"
--- NOTE | 2020-07-11 13:11 | NUR ---
SPOKE WITH THE PT TO COMPLETE THE MED REC PT DENIES TAKING ANY PRESCRIPTION OR OTC MEDICATIONS
--- NOTE | 2020-07-11 13:53 | History & Physical-Hospitalist ---
History of Present Illness HPI/Chief Complaint Ron Cameron Jr is a 45-year-old male with no known past medical history who presented with left elbow pain and swelling. 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 He was having redness and warmth of his elbow. He was also having fevers. He denies any known specific trauma to his elbow. He denies any previous surgeries on his elbow. He has no history of gout. Source: patient Exam Limitations: no limitations Date Seen 07/11/20 Time Seen by a Provider: 09:05 Attending Physician Elida Mixon MD PCP Duke Simpson MD Referring Physician Date of Admission Jul 10, 2020 at 17:44 Home Medications & Allergies Home Medications Reviewed patient Home Medication Reconciliation performed by pharmacy medication reconciliations civil cadd technician and/or nursing. Patients Allergies have been reviewed. Allergies Allergies Coded Allergies No Known Drug Allergies (Verified06/07/07) Past Hsinucp-Mzbatp-Adxbsh Hx Past Med/Social Hx: Reviewed Nursing Past Med/Soc Hx Patient Social History Alcohol Use: Occasionally Uses Alcohol Beverage of Choice: Beer, Whiskey Recreational Drug Use: No Smoking Status: Never a Smoker 2nd Hand Smoke Exposure: No Physical Abuse Screen: No Sexual Abuse: No Recent Foreign Travel: No Contact w/other who traveled: No Recent Hopitalizations: No Recent Infectious Disease Expo: No Immunizations Up To Date Tetanus Booster (TDap): Less than 5yrs Seasonal Allergies Seasonal Allergies: No Past Medical History Surgeries: Orthopedic Reproductive: No History of Blood Disorders: No Family History Diabetes mellitus 19 FATHER Review of Systems Constitutional: fever EENTM: no symptoms reported Respiratory: no symptoms reported Cardiovascular: no symptoms reported Gastrointestinal: no symptoms reported Genitourinary: no symptoms reported Musculoskeletal: joint pain Skin: change in color Psychiatric/Neurological: No Symptoms Reported Physical Exam Physical Exam Vital Signs Vital Signs - First Documented 07/10/20 15:55 Temp 36.7 Pulse 105 Resp 20 B/P (MAP) 166/104 (124) Pulse Ox 97 O2 Delivery Room Air Capillary Refill : Less Than 3 Seconds Height, Weight, BMI Height: 5'11.00" Weight: 215lbs. oz. 97.027337wh; 29.99 BMI Method:Stated General Appearance: No Apparent Distress, WD/WN HEENT: PERRL/EOMI, Pharynx Normal Neck: Normal Inspection, Supple Respiratory: Lungs Clear, Normal Breath Sounds, No Respiratory Distress Cardiovascular: Regular Rate, Rhythm, No Edema, No Murmur Gastrointestinal: Normal Bowel Sounds, Non Tender, Soft Extremity: Inflammation, Swelling, Other (left elbow erythematous, warm, swollen, full range of motion) Neurologic/Psychiatric: Alert, Oriented x3, No Motor/Sensory Deficits, Normal Mood/Affect Skin: Erythema (left elbow) Lymphatic: No Adenopathy Results Results/Procedures Labs Laboratory Tests 07/10/20 16:00 07/11/20 05:40 Patient resulted labs reviewed. Imaging: Reviewed Imaging Report Assessment/Plan Admission Diagnosis Acute gout of left elbow Admission Status: Inpatient Order (span 2 midnights) Reason for Inpatient Admission: Possible septic arthritis Assessment and Plan Acute gout of left elbow Possible septic arthritis SIRS+ with Joint aspiration revealed uric acid crystals, slightly elevated WBC Started on Naproxen Transition to oral Prednisone Started on Vancomycin and Ancef for possible septic arthritis Gram stain revealed no bacteria, culture pending Ortho consulted, appreciate assistance Elevated blood pressure Started on Amlodipine DVT Prophylaxis: Lovenox Diagnosis/Problems Diagnosis/Problems (1) Acute gout of left elbow Status: Acute (2) Elevated blood pressure reading Status: Acute (3) BMI 30.0-30.9,adult Status: Acute Clinical Quality Measures DVT/VTE Risk/Contraindication: Risk Factor Score Per Nursin RFS Level Per Nursing on Admit: 2=Moderate ELIDA MIXON MD Jul 11, 2020 13:53
[2020-07-11] MEDS: ENOXAPARIN 40 MG/0.4 ML (LOVENOX) SYR SC SCH (20:08)
[2020-07-12] MEDS: ceFAZolin 2 GM IV Premixed 50 ML IV SCH ×2 (00:30→08:41)
[2020-07-12] MEDS: ACETAMINOPHEN 325 MG TABLET PO PRN (00:32)
[2020-07-12 04:33] VITALS: BP 138/78
[2020-07-12] MEDS ORDERED: predniSONE 20 MG TAB PO SCH (07:00)
[2020-07-12 08:00] VITALS: BP 140/67
[2020-07-12] MEDS ORDERED: TROUGH ORDER-PHARMACY XX NR (08:00)
[2020-07-12 08:02] LABS: BASOPHILS % (AUTO) 0 % (0-10); EOSINOPHILS # (AUTO) 0.1 10^3/uL (0.0-0.3); EOSINOPHILS % (AUTO) 1 % (0-10); HEMATOCRIT 43 % (40-54); HEMOGLOBIN 14.2 g/dL (13.3-17.7); LYMPHOCYTES # (AUTO) 3.1 10^3/uL (1.0-4.0); LYMPHOCYTES % (AUTO) 20 % (12-44); MEAN CORPUSCULAR HEMOGLOBIN 28 pg (25-34); MEAN CORPUSCULAR HGB CONC 33 g/dL (32-36); MEAN CORPUSCULAR VOLUME 84 fL (80-99); MEAN PLATELET VOLUME 10.1 fL (9.0-12.2); MONOCYTES # (AUTO) 1.1 10^3/uL (0.0-1.0); MONOCYTES % (AUTO) 7 % (0-12); NEUTROPHILS % (AUTO) 72 % (42-75); PLATELET COUNT 247 10^3/uL (130-400); WHITE BLOOD COUNT 15.4 10^3/uL (4.3-11.0)
[2020-07-12] MEDS: SENNOSIDES 8.6 MG (SENOKOT) TAB PO SCH (08:45)
[2020-07-12] MEDS: PANTOPRAZOLE 40 MG (PROTONIX) TAB PO SCH (08:45)
[2020-07-12] MEDS: VANCOMYCIN INJECTION 1,500 MG in NS IV 500 ML 500 ML IV SCH (08:45)
[2020-07-12] MEDS: amLODIPine 5 MG (NORVASC) TAB PO SCH (08:45)
[2020-07-12] MEDS: DOCUSATE SODIUM 100 MG (COLACE) CAP PO SCH (08:45)
[2020-07-12] MEDS ORDERED: CEPH-507 PO (11:44)
[2020-07-12] MEDS ORDERED: PRD20T PO (11:44)
[2020-07-12 12:39] VITALS: BP 140/67
--- NOTE | 2020-07-12 14:52 | Discharge Summary ---
Discharge Summary Hospital Course Was the Problem List Reviewed?: Yes Problems/Dx: (1) Acute gout of left elbow Status: Acute Qualifiers: Qualified Codes: M10.022 - Idiopathic gout, left elbow (2) Elevated blood pressure reading Status: Acute (3) BMI 30.0-30.9,adult Status: Acute Hospital Course Date of Admission: Jul 10, 2020 at 17:44 Admission Diagnosis : acute gout of left elbow Family Physician/Provider: Duke Collins MD Date of Discharge: 07/12/20 Discharge Diagnosis: acute gout of left elbow Hospital Course: Ron Cameron is a 45-year-old male who presented with left elbow pain, redness, and swelling and was admitted with acute gout of the left elbow. There is concern for a possible septic arthritis and an arthrocentesis was performed. This showed a mildly elevated white blood cell count and uric acid crystals were identified. The Gram stain revealed no bacteria. The culture had no growth to date at the time of discharge. He was started on prednisone for his acute gout flare. He was given a course of Keflex for possible infectious etiology. He should follow-up with his primary care physician, Dr. Collins, in about a week. I would recommend initiation of Allopurinol with a 1 month overlap of gout prophylaxis with Naproxen 250 mg twice daily. He was discharged home in stable condition. Labs and Pending Lab Test: Laboratory Tests 07/12/20 07:56: White Blood Count 15.4H, Red Blood Count 5.08, Hemoglobin 14.2, Hematocrit 43, Mean Corpuscular Volume 84, Mean Corpuscular Hemoglobin 28, Mean Corpuscular Hemoglobin Concent 33, Red Cell Distribution Width 13.4, Platelet Count 247, Mean Platelet Volume 10.1, Immature Granulocyte % (Auto) 1, Neutrophils (%) (Auto) 72, Lymphocytes (%) (Auto) 20, Monocytes (%) (Auto) 7, Eosinophils (%) (Auto) 1, Basophils (%) (Auto) 0, Neutrophils # (Auto) 11.0H, Lymphocytes # (Auto) 3.1, Monocytes # (Auto) 1.1H, Eosinophils # (Auto) 0.1, Basophils # (Auto) 0.0, Immature Granulocyte # (Auto) 0.1, Vancomycin Level Trough 9.5L Microbiology 07/10/20 Blood Culture - Preliminary, Resulted No growth 07/10/20 Gram Stain - Final, Resulted 07/10/20 Body Fluid Culture - Preliminary, Resulted No growth Home Meds Active Keflex (Cephalexin) 500 Mg Capsule 500 Mg PO TID 7 Days Prednisone 20 Mg Tab 40 Mg PO DAILY@0700 7 Days Assessment/Pt Instructions Take medications as prescribed. Complete your course of prednisone and Keflex even if you're feeling better. Follow-up with your primary care physician in a week. Discharge Planning: <30 minutes discharge planning Discharge Instructions Discharge Diet: No Restrictions Activity as Tolerated: Yes Consultations Orthopedic surgery Discharge Physical Examination Vital Signs Vital Signs Date Time Temp Pulse Resp B/P (MAP) Pulse Ox O2 Delivery O2 Flow Rate FiO2 07/12/20 12:39 36.4 90 18 140/67 95 Room Air General Appearance: No Apparent Distress, WD/WN Respiratory: Lungs Clear, Normal Breath Sounds, No Respiratory Distress Cardiovascular: Regular Rate, Rhythm, No Edema, No Murmur Gastrointestinal: Normal Bowel Sounds, Non Tender, Soft Extremity: Swelling (left elbow) Skin: Erythema (left elbow) Neurologic/Psychiatric: Alert, Oriented x3, No Motor/Sensory Deficits, Normal Mood/Affect Allergies: Coded Allergies: No Known Drug Allergies (Verified , 06/07/07) Copy Copies To 1: DUKE COLLINS MD Discharge Summary Date of Admission Jul 10, 2020 at 17:44 Date of Discharge Jul 12, 2020 at 12:30 Discharge Date: Jul 12, 2020 Discharge Time: 12:30 Admission Diagnosis Acute gout of left elbow Consults/Procedures Consulations orthopedic surgery Procedures arthrocentesis Discharge Diagnosis Acute gout of left elbow (1) Acute gout of left elbow Status: Acute Qualifiers: Qualified Codes: M10.022 - Idiopathic gout, left elbow (2) Elevated blood pressure reading Status: Acute (3) BMI 30.0-30.9,adult Status: Acute Clinical Quality Measures DVT/VTE Risk/Contraindication: Risk Factor Score Per Nursin RFS Level Per Nursing on Admit: 2=Moderate LAINA MIXON MD Jul 12, 2020 14:51
== END 2020-07-12 12:30 | disposition home or self-care (01) | DRG 554 ==
LOC: EDUNIT# 15:34 → ER 15:36 → 4TH 17:44
PROVIDERS: ADMIT Internal Medicine; ATTEND Internal Medicine
PROC: 0R9M3ZX Drainage of Left Elbow Joint, Percutaneous Approach, Diagnostic (ICD-10-PCS; principal; 2020-07-11)
DX: M10.022 Idiopathic gout, left elbow (principal); R65.10 Systemic inflammatory response syndrome (SIRS) of non-infectious origin without acute organ dysfunction; R03.0 Elevated blood-pressure reading, without diagnosis of hypertension; D72.829 Elevated white blood cell count, unspecified
CPT/HCPCS: 36415; 73080; 80053; 80202; 83605; 84550; 85007; 85025; 85027; 87040; 87070; 87205; 89051; 89060

== ENCOUNTER 2021-01-30 19:14 | Emergency (ER) | payer OTHER ==
[~2021-01-30] VITALS: Ht 180 cm; Wt 99.7 kg
[~2021-01-30 19:14] MED LIST changes: +CEPH-507 PO; +PRD20T PO
[2021-01-30 19:18] VITALS: BP 144/101
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
--- NOTE | 2021-01-30 19:55 | Diagnostic Imaging Report ---
INDICATION: Hand pain. COMPARISON: None available. TECHNIQUE: Three radiographs of the right hand dated January 30, 2021. FINDINGS: Mild bone deformity of the 5th metacarpal is present, felt to relate to a chronic fracture deformity. No acute fracture or dislocation. No destructive osseous process. Minimal scattered degenerative changes. No suspicious radiopaque foreign body. IMPRESSION: No acute osseous abnormality with mild chronic fracture deformity of the 5th metacarpal. Dictated by: Dictated on workstation # [id number]
== END 2021-01-30 19:55 | disposition home or self-care (01) ==
LOC: EDUNIT# 19:14 → ER 19:16
DX: S60.221A Contusion of right hand, initial encounter (principal); Y04.0XXA Assault by unarmed brawl or fight, initial encounter
CPT/HCPCS: 73130

== ENCOUNTER 2022-01-26 19:26 | Emergency (ER) | payer OTHER ==
[~2022-01-26] VITALS: Ht 180 cm; Wt 102.0 kg
[~2022-01-26 19:26] MED LIST changes: -SULF1TAB35 PO; +SULF1TAB38 PO
[2022-01-26] MEDS ORDERED: OMEP-401 PO (20:16)
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
--- NOTE | 2022-01-26 21:19 | Diagnostic Imaging Report ---
CLINICAL HISTORY: Right tibia and fibula pain. Injury. COMPARISON: None. TECHNIQUE: 4 views of the right tibia and fibula.. FINDINGS: There is no acute fracture or dislocation of the right tibia and fibula. Alignment is anatomic. The imaged joint spaces are preserved. No focal osseous lesions are seen. IMPRESSION: 1. No acute fracture or dislocation in the right tibia and fibula. Dictated by: Dictated on workstation # [id number]
--- NOTE | 2022-01-26 21:21 | Diagnostic Imaging Report ---
CLINICAL HISTORY: Right knee pain. Injury. COMPARISON: None. TECHNIQUE: 4 views of the right knee. FINDINGS: There is no acute fracture or dislocation of the right knee. Alignment is anatomic. No focal osseous lesions. The imaged joint spaces are preserved. Small joint effusion is seen in the right knee. IMPRESSION: 1. No acute fracture or dislocation in the right knee. Small joint effusion is present. Dictated by: Dictated on workstation # [id number]
[2022-01-26] MEDS ORDERED: RX-CYCLOBENZAPRINE 10 MG (FLEXERIL) TAB PPK#3 PO STA (21:35)
[2022-01-26 21:39] VITALS: BP 132/79
== END 2022-01-26 21:41 | disposition home or self-care (01) ==
LOC: EDUNIT# 19:26 → ER 19:29
DX: S80.01XA Contusion of right knee, initial encounter (principal); V03.00XA Pedestrian on foot injured in collision with car, pick-up truck or van in nontraffic accident, initial encounter
CPT/HCPCS: 73564; 73590